=== PATIENT | male | born 1950 | race Caucasian/White ===

== ENCOUNTER 2024-03-30 10:26 | Outpatient (CLI) | payer OTHER, SELFPAY ==
[2024-03-30 10:52] LABS: Charge for UA Resulting for Rev
[2024-03-30 11:07] LABS: Bilirubin Urine Negative (Negative); Blood Urine Negative (Negative); Glucose Urine UA Negative (Normal); Ketones Urine Trace (Negative); Leukocyte Esterase Urine Negative (Negative); Nitrate Urine Negative (Negative); Protein Urine Trace (Negative); Specific Gravity, Urine 1.027 (1.005-1.030); Urine Appearance Clear (CLEAR); Urine Color Dark Yellow (Yellow); pH Urine 5.5 (5-7)
[2024-03-30 11:12] LABS: Bacteria Urine None Seen /hpf; Hyaline Casts Urine 0.81 /lpf; Squamous Epithelial Cell Urine 0-5 /hpf (0-5); WBC Urine 0-5 /hpf (0-5)
== END 2024-03-30 10:27 | disposition home or self-care (01) ==
LOC: LAB 10:31
PROVIDERS: PCP Family Medicine; Visit Provider Chiropractor
DX: Z01.89 Encounter for other specified special examinations (principal)
CPT/HCPCS: 81003; 81015

== ENCOUNTER → 2024-06-27 09:55 | Outpatient (BNVA) | payer OTHER, SELFPAY | PROVIDERS: PCP Family Medicine; Visit Provider Podiatrist Foot & Ankle Surgery | DX: E11.42 Type 2 diabetes mellitus with diabetic polyneuropathy (principal); M21.611 Bunion of right foot; M21.612 Bunion of left foot; M79.672 Pain in left foot; L60.3 Nail dystrophy; I73.9 Peripheral vascular disease, unspecified; R26.9 Unspecified abnormalities of gait and mobility; L84 Corns and callosities | CPT/HCPCS: 11056; 11721; 99203 ==

== ENCOUNTER → 2025-01-09 09:35 | Outpatient (BNVA) | payer OTHER, SELFPAY | PROVIDERS: PCP Family Medicine; Visit Provider Specialist | DX: M16.11 Unilateral primary osteoarthritis, right hip (principal) | CPT/HCPCS: 73502; 99204 ==

== ENCOUNTER → 2025-02-15 09:58 | Outpatient (BNVA) | payer OTHER, SELFPAY | PROVIDERS: PCP Family Medicine; Visit Provider Family Medicine | DX: Z13.1 Encounter for screening for diabetes mellitus (principal); Z01.818 Encounter for other preprocedural examination | CPT/HCPCS: 80053; 81003; 83036; 85025; 87086; 93005 ==

== ENCOUNTER 2025-02-23 17:38 | Observation (INO) | payer OTHER, MEDICARE, SELFPAY ==
--- OUTSIDE RECORDS SUMMARY | 2024-06-14 08:17 | XMS_ITS | Encounter Summary ---
Author Name [facility] [place] [facility] [place] Address [address] [place] [address] Care Team Providers Care Automobile Appraiser Name Role Phone JAE HEBERT Primary Care Provider Unavailabl e LILA AGUILAR Primary Care Provider Unavailjeanette laboy Insurance Providers: All historical and current Section Date Range: From patient's date of to the date document was created. This section includes the names of all active insurance providers for the patient. Insurance Provider Type of Coverage Plan Name Start of Policy Coverage End of Policy Coverage Group Number Member ID Insurance Provider's Telephone Number Policy Leger's Name Patient's Relationship to Policy Leger MEDICARE (WNR) MEDICARE (M) PART A Aug 31, 2013 PART A [phone] SHABNAM VICKERS HN PATIENT MEDICARE (WNR) MEDICARE (M) PART A Aug 31, 2013 PART A [id number] [phone] VICKERSSHABNAM HN PATIENT MEDICARE (WNR) MEDICARE (M) PART A Aug 31, 2013 PART A [id number] VICKERSSHABNAM CEBALLOS PATIENT Selected Encounter This section includes the information on record at [place] for the Encounter. Date/Time Encounter Type Encounter Description Reason Provider Source Jun 14, 2024 01:17 PM Outpatient Encounter ADMIN PAT ACTIVTIES (MASNONCT) [facility]GEI L[address] IHXochilt Encounter Template Text not used by VA Plan of Treatment: Future Appointments (+ 6 months) and Future Tests (+/- 45 days) The Plan of Treatment section includes future care activities for the patient from all [place] [facility]. This section includes future appointments and future orders which are active, pending or scheduled. Future Appointments This section includes appointments that were scheduled to occur 6 months from the date of the Encounter, up to a maximum of 20 appointments. The data comes from all [place] treatment facilities. Appointment Date/Time Appointment Type Appointme nt Facility Name Jun 27, 2024 10:00 AM AMBULATORY - MEDICINE [facility] Jul 01, 2024 10:45 AM AMBULATORY - MEDICINE [facility] Dec 01, 2024 10:00 AM [facility] MEDICINE [facility] Lab Results: +/- 30 days of the encounter This section includes the Chemistry and Hematology Lab Results on record with [place] for the patient. Radiology Reports and Pathology Reports are provided separately, in subsequent sections. Lab Results This section contains the Chemistry/Hematology Results that were resulted 30 days before or 30 daysafter the date of the Encounter. Date/Time Source Result Type Result - Unit Interpretation Reference Range Specimen Type Comment Jun 07, 2024 09:36 AM [facility] COMPREHENSIVE METABOLIC PANEL PLASMA Specimen Type: PLASMA No comment entered. Ordering Provider: JAE HEBERT Report Released Date/Time: Dec 18, 2023 08:41 AM Reporting Lab: [facility] [address] [address] Performing Lab: [facility] [address] [facility] [address] CREATININE 0.95 mg/dL 0.7-1.3 UREA NITROGEN 18 mg/dL 9-25 GLUCOSE 179 mg/dL H 72-99 SODIUM 140 meq/L 136-145 POTASSIUM 4.5 meq/L 3.5-5 CHLORIDE 104 meq/L 98-107 CARBON DIOXIDE 28 meq/L 22-31 CALCIUM 8.9 mg/dL 8.4-10.4 PROTEIN 7.2 g/dL 6-8.6 ALBUMIN 4.0 g/dL 3.4-5 TOTAL BILIRUBIN 0.5 mg/dL 0.2-1.2 ALKALINE PHOSPHATASE 110 U/L 40-150 AST/SGOT 32 U/L 5-34 ALT/SGPT 33 U/L 8-40 EGFR (CKD-EPI 2020) 83 Jun 07, 2024 09:36 AM [facility] CHOLESTEROL PANEL (PB) PLASMA Specimen Type: P KARYN No comment entered. Ordering Provider: JAE HEBERT Report Released Date/Time: Dec 18, 2023 08:41 AM Reporting Lab: [place] [facility] [address] [place] [address] Performing Lab: [place] [facility] [address] [place] [address] CHOLESTEROL 159 mg/dL 0-200 TRIGLYCERIDE 120 mg/dL 0-150 CALCULATED LDL 94.9 mg/dL HDL(New) 40.1 mg/dL H >40 HDL % OF TOTAL CHOLESTEROL (PB) 25.2 >25 Jun 07, 2024 09:36 AM [facility] CB HGA1C BLOOD Specimen Type: BLOOD No comment entered. Ordering Provider: JAE HEBERT Report Released Date/Time: Dec 18, 2023 08:41 AM Reporting Lab: [place] [facility] [address] [place] [address] Performing Lab: [place] [facility] [address] [place] [address] HGA1C 7.7 H 4.0-6.0 Vital Signs: All taken on the encounter date This section contains inpatient and outpatient Vital Signs collected on the date of the Encounter. Date/Time Temperature Pulse Blood Pressure Respiratory Rate SP02 Pain Height Weight Body Mass Index Source Jun 14, 2024 11:30 AM 98 67 156/69 18 97 203.8 29 [facility] Social History: Smoking Status (Most current) and Tobacco Use (All prior to encounter date) This section includes the most current, and the historical, smoking and tobacco- related health factors from the [place] facility where the Encounter took place. Current Smoking Status This section includes the most current smoking, or tobacco-related health factor, from the [place] facility where the Encounter took place. Date/Time Current Smoking Status Comment Agata piedra Dec 16, 2023 01:00 PM VA-TOBACCO NEVER USED [facility] Encounter Notes: All associated encounter notes This section contains the clinical notes associated to the Encounter. Date/Time Encounter Note(s) Provider Source Jun 14, 2024 01:17 PM LETTERS: LOCAL TITLE: TELE-EYE RESULTS LETTER STANDARD TITLE: LETTERS DATE OF NOTE: JUN 14, 2024@13:17 ENTRY DATE: JUN 14, 2024@13:17:35 AUTHOR: SERGEI LANE EXP COSIGNER: URGENCY: STATUS: COMPLETED JUN 14, 2024 TANIA VICKERS [facility] [place], [place] [address] Dear Tania Vickers: You are receiving this letter in regard to your recent [facility] EYE SCREENING. The purpose of the screening is to detect specific vision-threatening conditions such as diabetic retinopathy (if you are diabetic), macular degeneration, and glaucoma. Early detection of eye disease can be important to reduce the risk of permanent vision loss. Your information and testing was reviewed by a licensed VA eye care provider. The date of review and findings are noted below: Screening Exam Findings 06/14/2024 No diabetic retinopathy apparent No macular degeneration apparent No glaucoma apparent No other time-sensitive findings apparent Recommendations: 06/14/2024 A repeat eye screening in 2 YEARS has been recommended *Please note that incidental findings outside the primary focus of this screening may be noted within the detailed report of the visit. This report can be accessed online through [employer] ([email or web address]) or requested through your VA Medical Records/Release of Information office. If you have been seen by a non-VA eye care provider, please bring your records to your next VA appointment to be scanned into your medical record. If you are a tobacco user, [place] provides tobacco cessation services which can reduce the risk of eye disease as well as risks to your overall health. Please discuss with your VA Primary Care team for more information. Thank you for allowing us to serve you. VA Healthcare Team Digital retinal imaging has been shown to be an effective method of screening for specific eye conditions, but cannot substitute for a comprehensive eye exam. Comprehensive eye exams are recommended every 1-2 years, or more frequently as determined by the presence of risk factors, early signs or symptoms, or known history of eye disease. [address]GEI [address] [facility]
--- OUTSIDE RECORDS SUMMARY | 2025-01-03 09:02 | XMS_ITS | Encounter Summary ---
Author Name [facility] [place] [facility] [place] Address [address] [place] [address] Care Team Providers Care Analyst Business Analysis Name Role Phone JAE HEBERT Primary Care [...] PART A Aug 31, 2013 PART A [id number] SHABNAM VICKERS HN PATIENT MEDICARE (WNR) MEDICARE (M) PART A Aug 31, 2013 PART A [id number] VICKERSSHABNAM HN PATIENT MEDICARE (WNR) MEDICARE (M) PART A Aug 31, 2013 PART A [id number] VICKERSSHABNAM CEBALLOS PATIENT Selected Encounter This section includes the information on record at [place] for the Encounter. Date/Time Encounter Type Encounter Description Reason Pro vider Source January 03, 2025 02:02 PM Outpatient Encounter ADMIN PAT ACTIVTIES (MASNONCT) IHE Encounter Template Text not used by VA Plan of Treatment: Future Appointments (+ 6 months) and Future Tests (+/- 45 days) The Plan of Treatment section includes future care activities for the patient from all [place] [facility]. This section includes future appointments and future orders which are active, pending or scheduled. Future Appointments This section includes appointments that were scheduled to occur 6 months from the date of the Encounter, up to a maximum of 20 appointments. The data comes from all [facility]. Appointment Date/Time Appointment Type Appointme nt Facility Name January 04, 2025 12:30 PM AMBULATORY - MEDICINE [facility] January 04, 2025 12:31 PM [facility]ORY - [place]IC[facility] [place] [facility] January 09, 2025 08:30 AM [facility] - [facility]IC[facility] [place] Feb 07, 2025 10:45 AM [facility] Social History: Smoking Status (Most current) and Tobacco Use (All prior to encounter date) This section includes the most current, and the historical, smoking and tobacco- related health factors from the [place] facility where the Encounter took place. Current Smoking Status This section includes the most current smoking, or tobacco-related health factor, from the [place] facility where the Encounter took place. Date/Time Current Smoking Status Comment Facil ity Dec 21, 2024 01:00 PM VA-TOBACCO NEVER USED CIGARETTES [facility] Tobacco Use History This section includes a history of the smoking, or tobacco-related health factors, that were collected on or before the date of the Encounter. The data comes from the [place] facility where the Encounter took place. Date/Time Smoking Status/Tobacco Use Comment F acility Dec 21, 2024 01:00 PM VA-TOBACCO NEVER USED OTHER TYPE [facility] Dec 16, 2023 01:00 PM VA-TOBACCO NEVER USED [facility] Radiology Reports: +/- 30 days of the encounter Radiology Reports For cases when an order for radiology services may have been completed prior to the date of the Encounter, the report list includes the Radiology Reports that were completed up to 30 days before dateof the Encounter. For cases when an order for radiology services may have been completed after the date of the Encounter, the report list also includes the Radiology Reports that were completed up to30 days after date of the Encounter. The data comes from all [facility]. Date/Time Radiology Report Provider Source Dec 21, 2024 01:23 PM HIP W/PELVIS 2-3 V IEWS RIGHT: TANIA VICKERS [id number] -[id number] M Exm Date: DEC 21, 2024@13:23 Req Phys: JAE HEBERT Loc: PB-HILARIO PACT ECHO PCP (Michael'jamil Tobar Img Loc: PB-XRAY [place] Service: [place] [address] (Case [id number] COMPLETE) HIP W/PELVIS 2-3 VIEWS RIGHT (RAD Detailed) CPT:03263 Reason for Study: locking up no injury increased pain Clinical History: Report Status: Verified Date Reported: DEC 21, 2024 Date Verified: DEC 21, 2024 Office Chair Assembler E-Sig: Report: EXAM: Right hip AP and frog-leg views along with AP pelvis. FINDINGS: There is no acute fracture or dislocation. The joint space of the right hip is narrowed and there is osseous degenerative change involving the right hip. In the superior aspect of the right femoral head there is a small area of decreased density which may be associated with the degenerative change although avascular necrosis cannot be excluded. There is mild degenerative change involving the pelvis and the left hip. There is degenerative disc disease and osseous degenerative change involving the lower lumbar spine. There is vascular calcification. Impression: 1. No evidence of acute osseous injury. 2. Narrowed joint space of the right hip with osseous degenerative change. 3. Small area of decreased density in the superior aspect of the right femoral head which may be associated with the degenerative change although avascular necrosis cannot be excluded. 4. Mild degenerative change involving the pelvis and left hip. 5. Degenerative change involving the lower lumbar spine. 6. Vascular calcification. Primary Interpreting Staff: Xiang Patel M.D., Radiology (Office Chair Assembler, no e-sig) /[facility] Encounter Notes: All associated encounter notes This section contains the clinical notes associated to the Encounter. Date/Time Encounter Note(s) Provider Source January 03, 2025 02:02 PM GENERAL MEDICINE N OTE: LOCAL TITLE: General Note PB STANDARD TITLE: GENERAL MEDICINE NOTE DATE OF NOTE: JANUARY 03, 2025@14:02 ENTRY DATE: JANUARY 03, 2025@14:02:56 AUTHOR: SERGEI LANE EXP COSIGNER: URGENCY: STATUS: COMPLETED Attempted to confirm 01/04/25 Audiology appt, no answer /dain/ SERGEI L[address] Telehealth Clinical Whitewasher Signed: 01/03/2025 14:[address] [facility]
[2025-02-23] VITALS (18 sets, daily range): BP systolic 104–164; BP diastolic 53–78; PULSE 67–80; RESP 14–20; TEMP 36.1–36.7; O2SAT 90–98; BMI 26.5
[2025-02-23] MEDS: acetaminophen 1,000 MG/100 ML PIGGYBACK 400 MG IV ×2 (09:44→18:16)
[2025-02-23] MEDS: gabapentin 300 mg Capsule PO (09:46)
[2025-02-23] MEDS: CELEcoxib 200 mg Capsule 400 MG PO (09:46)
[2025-02-23 09:51] LABS: Glucose Point of Care 181 mg/dL (70-110)
--- NOTE | 2025-02-23 10:00 | P.HPUD_ITS ---
Surgery/Procedure H&P Update DATE OF PROCEDURE: February 23, 2025 DATE H&P PERFORMED: 02/15/25 H&P UPDATE INFORMATION: I have reviewed H&P completed within last 30 days, I have examined patient prior to procedure, No changes to prior documentation, H&P is in [facility] EMR on date indicated and Risks and benefits of the procedure reviewed PLANNED PROCEDURE: Operation Date: 02/23/25 10:45 Proposed Procedures p Total Hip Arthroplasty(Right) - Melanie De La Fuente MD Related Problem List Diagnoses (1) Primary osteoarthritis of right hip:
--- NOTE | 2025-02-23 10:10 | ANES.PREANE2 ---
Pre-Anesthetic Assessment Height/Weight: Height 1.78 m Weight 83.915 kg Temp Pulse Resp BP Pulse Ox O2 Del Method 97.8 F 80 16 164/78 97 Room Air 02/23/25 09:10 02/23/25 09:10 02/23/25 09:10 02/23/25 09:10 02/23/25 09:10 02/23/25 09:11 Operation Date: 02/23/25 10:45 Proposed Procedures p Total Hip Arthroplasty(Right) - Melanie De La Fuente MD Familial anesthetic complications: None Was Beta Lu taken within 24 hours: N/A Was Clonidine taken within 24 hours: N/A Last intake: Intake Last Liquid Date 02/22/25 Last Liquid Time 20:00 Last Solid Date 02/22/25 Last Solid Time 20:00 Social No alcohol and No tobacco Exam alert, oriented x 3, clear to auscultation bilaterally and regular rate & rhythm Airway Mallampati: Class II Dentition: full CV/HEM Hypertension PFO - small Metabolic Diabetes Mellitus and Hyperlipidemia Neuropsych Cerebrovascular Accident (residual L sided weakness) Anesthetic Plan Anesthesia: Regional (specify below) Other: spinal Risk of > 500 ml blood loss (7ml/kg in children): No Medications/Allergies Home Medications ?Medication ?Instructions ?Recorded ?Confirmed ?Last Taken ?Type aspirin 81 mg tablet,delayed 81 mg PO DAILY 02/08/24 02/23/25 02/19/25 History release (Adult Aspirin Regimen) atorvastatin 80 mg tablet 80 mg PO DAILY 02/08/24 02/23/25 02/19/25 History lisinopril 10 mg tablet 10 mg PO DAILY 02/08/24 02/23/25 02/19/25 History metformin 500 mg tablet,extended 1,000 mg PO DAILY 02/08/24 02/23/25 02/19/25 History release 24 hr metoprolol succinate 25 mg 12.5 mg PO DAILY 02/08/24 02/23/25 02/22/25 History tablet,extended release 24 hr Compression stockings bilaterally #6 ea 06/27/24 01/09/25 Unknown Rx Diabetic shoes with CUSTOM insoles #1 ea 06/27/24 01/09/25 Unknown Rx Allergies Allergy/AdvReac Type Severity Reaction Status Date / Time No Known Allergies Allergy Verified 02/23/25 09:07 [facility] Anesthesia Social History Smoking and tobacco/nicotine status: never used tobacco/nicotine
[2025-02-23] MEDS: ceFAZolin 2,000 mg SDV 2000 MG IVP ×2 (10:21→18:15)
--- NOTE | 2025-02-23 11:24 | SUR.OPER ---
pt came to OR visibly soiled and multiple sores noted on legs. Dr De La Fuente and JENNIFER Dugan made aware. Pt lower extremities, abdomen, and back bathed in OR with Chloroxylenol prior to prep for case.
[2025-02-23] MEDS: BUPivacaine 0.5% INJ 30 mL XX (11:35)
[2025-02-23] MEDS: vancomycin 1,000 MG SDV 1000 MG INTRA-ARTI (11:36)
[2025-02-23] MEDS: vancomycin 1,000 MG SDV 1000 MG IV (11:36)
[2025-02-23] MEDS: BUPivacaine liposome 13.3 mg/mL SDV 20 mL 266 MG INFILTRATI (11:37)
[2025-02-23] MEDS: ceFAZolin 1,000 mg SDV 1000 MG IRRIGATION (11:38)
[2025-02-23] MEDS: tranexamic acid 1,000 mg/10mL SDV 1000 MG (11:38)
[2025-02-23 13:00] LABS: MRSA PCR OZH (swab) NOT DETECTED (Negative)
--- NOTE | 2025-02-23 13:17 | XR_ITS ---
WS: [id number] Exam: XR pelvis 1-2V* [id number] Date/Time of Exam: 02/23/2025 1:17 PM Reason For Exam: Right total hip Comparison 01/09/2025. RIGHT total hip arthroplasty is noted. Postoperative changes in the adjacent soft tissues. XR/XR pelvis 1-2V* [id number] IMPRESSION: 1. RIGHT total hip replacement.
--- NOTE | 2025-02-23 13:17 | P.OP_ITS ---
Operative Report Date of procedure: February 23, 2025 Pre-op diagnosis: Primary osteoarthritis right hip Post-op diagnosis: Primary osteoarthritis right hip Post-op findings: Hip was stable at 90 degrees of flexion with 60 degrees of internal rotation and 20 degrees of adduction. It was stable to toe hanging, and it was stable to external rotation. Procedure done: Right total hip arthroplasty Implants: [place] [employer] total hip system: The size 56 mm solid back acetabular shell with an F alpha code and an MDM liner size 46 mm inner diameter by F alpha code. A size 6 [employer]ign[employer] high offset neck angle hip stem, femoral head size 28 mm outer diameter and +4 mm offset inside of an MDM insert size inner diameter 28 mm to match the 46F Specimens removed/disposition: Bone, disposed of Pathology: None sent Surgeon: Melanie De La Fuente MD Interpreter Deaf: Deb Jean-Baptiste, nurse practitioner, who services were required for positioning, completion of the surgical procedure, retraction, surgical closure Anesthesia: General (Per LMA, ASA 3) and Spinal (Supplemented with general per LMA) Estimated blood loss (mL): 210 IV fluids (mL): 1,000 Urine output (mL): 100 Complications: None Findings: Severe degenerative osteoarthritis of the right hip with minimal abduction and extension. The hip was stable at 90 degrees of flexion with 70 degrees of internal rotation and 30 degrees of adduction. It was also stable to toe hanging and it was stable to external rotation. Prior to commencement of the surgical procedure, the patient underwent full bed bath secondary to cleanliness upon presentation. Condition: stable Disposition: PACU (Then to floor for postoperative rehabilitation and pain management) Brief History: This 74-year-old gentleman presented initially with complaints of severe hip pain. He had severe limitations in his activities of daily living. 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 Risks and benefits of surgery were discussed with the patient. Questions were answered. The patient wished to proceed with total hip arthroplasty. Procedure: Patient was brought to the operating theater. He was transferred to the operating room table and subsequently administered a spinal anesthesia supplemented with general anesthetic per LMA, ASA 3. Following administration of adequate anesthesia, the patient was given a full bed bath prior to being placed in position for surgery secondary to the cleanliness and concern for infection. Following this, the patient was placed in full lateral position and held in position with a pegboard. The patient's right lower extremity was then prepped and draped in usual fashion utilizing DuraPrep. It was draped free. Following prepping and draping a surgical pause was performed. At the time of surgical pause, we identified the site and side of surgery. We also identified the patient and preoperative surgical markings. Confirmation was made of equipment availability. Additionally, the patient's preoperative IV antibiotic, Ancef 2 g and TXA 1 g preoperatively was confirmed as being given in a timely fashion and being the appropriate. An additional dose will be given on the floor. Patient also was given 1 g of vancomycin in addition to the Ancef. Following the surgical pause, an incision was made centering over the patient's greater trochanter continuing proximally and distally as necessary to allow access to the hip joint. Dissection continued through skin and soft tissues us ing a scalpel, and hemostasis was obtained using electrocautery. The tensor fascia antonella was identified and incised longitudinally. Sciatic nerve was identified and protected throughout the surgical procedure. A Charnley U retractor was placed after the tensor fascia antonella had been incised longitudinally, and the sciatic nerve had been identified. The hip had significant limitation in range of motion including internal and external rotation as well as abduction and particularly extension of the hip. Retractors were placed, and the piriformis muscle was identified and tagged. Piriformis muscle along with the remaining short external rotators were then incised from the posterior aspect of the hip joint. These were retracted posteriorly. The capsule was entered in a T-type fashion with the edges being tagged. Upon entry through the capsule, significant fluid was encountered. Head was noted to be very deformed. Osteophytes were removed, and appropriate osteotomy was performed of the femoral neck following hip dislocation. We then evaluated the acetabulum. The femur was retracted anteriorly. Soft tissues were retracted, osteophytes were excised, and the acetabulum and surrounding osteophytes were further evaluated. We then began reaming with initial minimal deepening of the acetabulum secondary to findings on preoperative x-ray. Reaming was accomplished sequentially. We reamed to a size 55 to allow for a size 56 acetabular shell. The acetabulum was impacted into position. The dome hole was filled with the appropriate metal plug. Also, we confirmed that the acetabular insert was completely seated prior to addressing the femur. After the acetabulum was in appropriate position, we placed the MDM liner without difficulty. The cup was noted to seat nicely and had good fixation upon impact. Attention was directed to the proximal femur. The proximal femur was lifted out of the wound. A canal finder was passed after the box chisel. The reamer was used to lateralize. We then began broaching. We broached sequentially, and placed a size 7 broach in position for trial reduction. A trial reduction was accomplished with a +0 mm femoral head inside the appropriate MDM insert. This construct was felt to be too loose and with concern for instability, neck length was increased to a +4 mm offset. This gave excellent stability, and with this in place, we had the above stabilities. Therefore, the +4 mm offset femoral head was chosen. There was noted to be a tight adductor, and plans were made to release this. Trial components were removed after the hip was dislocated. The size 6 insignia high offset hip stem was impacted into position without difficulty and onto this was placed a +4 mm offset femoral head with the appropriate MDM liner. The hip was then reduced without difficulty. With this construct, we had stability with 90 degrees of flexion and 60 degrees of internal rotation as well as 30 degrees of adduction. We were also stable to toe hanging and to external rotation. The stem was noted to seat nicely prior to placement of the femoral head. The wound was then copiously irrigated with 20 mL of Betadine and 500 mL of normal saline mixed together. Subsequently, we suctioned this out and irrigated the wound copiously with lactated Ringer's. Exparel was injected into the pericapsular tissues as well. Following reduction of the prosthesis once again, we confirmed the stability of the hip. Leg lengths were also felt to be satisfactory. Being satisfied with the prosthesis, attention was directed to closure. Closure was accomplished with 0 Vicryl in the capsular tissues. Piriformis was reattached with 0 Vicryl as well. Tensor fascia antonella was closed with 0 Vicryl in an interrupted fashion. The subcutaneous tissues were closed with 2-0 STRATAFIX. Vancomycin powder and a Gelfoam thrombin mixture was placed into the wound as well. The skin was closed with a running 3-0 STRATAFIX followed by Dermabond, Prineo, and OpSite. The patient was placed in an abduction pillow. She was returned the Recovery Room in a satisfactory condition and will be discharged to the floor for postoperative rehabilitation and pain management. There were no complications. Related Problem List Diagnoses (1) Primary osteoarthritis of right hip:
--- NOTE | 2025-02-23 14:00 | ANE.PACU2 ---
Inpatient post-anesthesia follow up: Airway intact: Yes Vital signs: Temperature 97.4 F Pulse Rate 68 Respiratory Rate 16 Blood Pressure 120/67 Pulse Oximetry 95 Oxygen Delivery Me thod Nasal Cannula Oxygen Flow Rate 1.5 Fraction of Inspir ed Oxygen Hydration adequate: Yes Nausea and vomiting: No Pain level: 1 Mental status: Baseline
--- OUTSIDE RECORDS SUMMARY | 2025-02-23 14:52 | XMS_ITS | Continuity of Care Document ---
Author Name [facility] Organization [facility] Care Team Providers Care Machine Candle Molder Name Role Phone [facility] Unavailable Unavailable Problems Combined list of problems from Department of Defense and Veterans Affairs facilities. It does not include entries that were removed or entered in error. Problem Status Onset Date Problem Type Date of Resolution Comments Source Atrial septal defect Active Condition Jun 04, 2017 Entered By: KAREN SHARP Comment: May 28, 2017, echo report. No plaquing, redundant fossa ovalis, mild mitral valve regurgitation, small patent foramen ovale, mitral valve is mildly thickened.Jun 04, 2017 Entered By: KAREN SHARP Comment: no atherosclerotic plaquingOct 2016 Entered By: KAREN SHARP Comment: redundant fossa ovalisOct 2016 Entered By: KAREN SHARP Comment: mild mitral valve regurgitationOct 2016 Entered By: KAREN SHARP Comment: small patent foramen ovaleOct 2016 Entered By: KAREN SHARP Comment: mitral valve is mildly thickened [facility] Atrial septal defect Active Condition [place] [facility] Bilateral tinnitus Active Condition [place] [facility] Cerebral infarction Active Condition [facility] Cerebral infarction due to middle cerebral artery occlusion Active Condition [place] [facility] Degenerative joint disease involving multiple joints Active Condition [facility] Diabetes Mellitus Type 2 ([facility] [id number]) Active Condition [place] [facility] Exposure to potentially hazardous substance ([facility] [id number]) Active Condition Dec 17 4 Entered By: JEISON VEGA Comment: Entered automatically through [facility] Problem List documentation program [facility] GER[facility] - Gastro-Esophageal Reflux Disease ([facility] [id number]) Active Condition [place] [facility] Hearing Loss (SCT [id number]) Active Condition [place] [facility] HTN - Hypertension (SCT [id number]) Active Condition [place] [facility] Hyperlipidemia (SCT 49927579) Active Condition [place] [facility] Hypertension ([facility]OMED CT [id number]) Active Condition January 11, 2019 Entered By: ASCENCION OSBORN Comment: Currently managed with Metoprolol because he also had intermittent tachy. [facility] Impaired Fasting Glucose (SCT [id number]) Active Condition [facility] Left achilles tendonitis Active Condition [facility] Left hemiparesis Active [place] [facility] Social and personal history finding Active Condition Dec 21, 2019 Entered By: GEENA MAGANA Comment: Tania Dec 21, 2019 Entered By: GEENA MAGANA Comment: = Devika [facility] Type 2 diabetes mellitus without complication Active Condition [facility] Diagnosis: ICD-10-CM H61.21 Impacted cerumen, right ear Active Diagnosis [facility] Diagnosis: ICD-10-CM Z46.1 Encounter for fitting and adjustment of hearing aid Active [facility] Diagnosis: ICD-10-CM E11.9 Type 2 diabetes mellitus without complications Active Diagnosis [facility] Diagnosis: ICD-10-CM I10 Essential (primary) hypertension Active Diagnosis [facility] Diagnosis: ICD-10-CM Z13.5 Encounter for screening for eye and ear disorders Active Diagnosis [facility] Diagnosis: ICD-10-CM H91.90 Unspecified hearing loss, unspecified ear Active Diagnosis [facility] Diagnosis: ICD-10-CM R93.89 Abnormal findings on dx imaging of oth body structures Active Diagnosis [facility] Diagnosis: ICD-10-CM H90.3 Sensorineural hearing loss, bilateral Active Diagnosis [place] [facility] Diagnosis: ICD-10-CM R53.1 Weakness Active Diagnosis [facility] Diagnosis: ICD-10-CM Y93.E6 Activity, residential relocation Active Diagnosis [facility] Medications Combined list of outpatient medications from Department of Defense and Veterans Affairs facilities.Medications provided include 1) outpatient medications from the last 15 months, and 2) patient-reported medications. Medication Details Route Status Patient Instructions Prescription Expires Prescription Number Last Dispense Date Ordering Provider Order Date Order Qty Source ASPIRIN 81MG TAB,EC TAKE ONE TABLET BY MOUTH EVERY DAY ORAL ACTIVE MAKENNA OSBORN 2018 [facility] ASPIRIN 81MG TAB,EC TAKE ONE TABLET BY MOUTH ONCE A DAY ORAL ACTIVE ANUP, [facility] 2023 [facility] ATORVASTATI N [place] 80MG TAB TAKE ONE TABLET BY MOUTH EVERY EVENING FOR HIGH CHOLESTE ROL ORAL 12/16/2024 [id number] 5 [facility] 2023 90 [facility] FAMOTIDINE 20MG TAB TAKE ONE TABLET BY MOUTH TWICE A DAY FOR GASTROES OPHAGEAL REFLUX DISEASE ORAL 12/16/2024 [id number] 4 [facility] 2023 180 [facility] LISINOPRIL 10MG TAB TAKE ONE TABLET BY MOUTH ONCE A DAY FOR HIGH BLOOD PRESSURE ORAL ACTIVE 12/02/2025 [id number] 5 [facility] 2024 90 [facility] LISINOPRIL 10MG TAB TAKE ONE TABLET BY MOUTH ONCE A DAY FOR HIGH BLOOD PRESSURE ORAL DISCONT INUED 12/16/2024 [id number] 5 [facility] 2023 90 [facility] METFORMIN HCL 1000MG TAB TAKE ONE TABLET BY MOUTH TWICE A DAY WITH MEALS FOR DIABETES TAKE WITH FOOD. AVOID ALCOHOL. DISCONTI NUE BEFORE GETTING XRAY DYE. ORAL ACTIVE 06/15/2025 [id number] 5 [facility] 2023 180 [facility] METFORMIN HCL 500MG 24HR TAB,SA TAKE TWO TABLETS BY MOUTH ONCE A DAY FOR DIABETES TAKE WITH FOOD. AVOID ALCOHOL. DISCONTI NUE BEFORE GETTING XRAY DYE. ORAL DISCONT INUED BY PROVIDE R 12/16/2024 [id number] 4 [facility] 2023 60 [facility] METFORMIN HCL 500MG 24HR TAB,SA TAKE TWO TABLETS BY MOUTH ONCE A DAY FOR DIABETES TAKE WITH FOOD. AVOID ALCOHOL. DISCONTI NUE BEFORE GETTING XRAY DYE. ORAL DISCONT INUED 12/16/2024 [id number] 4 [facility] 2023 180 [facility] METOPROLOL SUCCINATE 25MG TAB,SA TAKE ONE-HALF TABLET BY MOUTH ONCE A DAY FOR HIGH BLOOD PRESSURE SWALLOW WHOLE, DO NOT CRUSH OR CHEW (TABLETS MAY BE CUT IN HALF). ORAL DISCONT INUED (EDIT) 12/16/2024 [id number] 4 JAE HEBERT 2023 45 [facility] METOPROLOL SUCCINATE 50MG TAB,SA TAKE ONE-HALF TABLET BY MOUTH ONCE A DAY FOR HIGH BLOOD PRESSURE SWALLOW WHOLE, DO NOT CRUSH OR CHEW (TABLETS MAY BE CUT IN HALF). ORAL ACTIVE 06/15/2025 [id number] 5 JAE HEBERT 2023 45 [facility] Immunizations Combined list of available immunizations from the Department of Defense and Veterans Affairs facilities. Immunization Series Date Given Administered By Site Reaction Lot Number CVX Code Drug Watch And Clock Repairer Status Comments Source INFLUENZA, INJECTABLE, QUADRIVALENT, PRESERVATIVE FREE 2018 NONE 150 complet ed [id number] EXP: 02/28/20 [facility] INFLUENZA, INJECTABLE, QUADRIVALENT, PRESERVATIVE FREE 2016 150 complet ed [facility] INFLUENZA, SPLIT VIRUS, PERSERVATIVE FREE (HISTORICAL) 2015 88 complet ed [facility] PNEUMOCOCCAL CONJUGATE PCV 13 2015 133 complet ed [facility] PNEUMOCOCCAL POLYSACCHARID E PPV23 2015 33 complet ed [facility] INFLUENZA, SPLIT VIRUS, PERSERVATIVE FREE (HISTORICAL) 2015 88 complet ed [facility] TDAP 2015 ROWENA MARTÍNEZ 115 complet ed [facility] ZOSTER (Shingles) (HISTORICAL) 2013 SHADI ANTUNEZ L complet ed [facility] ZOSTER LIVE 2013 121 complet ed HISTORICA L INFORMATI ON - FROM OTHER [facility], [facility] Results Combined list of recent chemistry, hematology and other laboratory results from Department of Defense and Veterans Affairs, ranging from 15 months to all on record, depending upon the facility. Order Name Results Value Reference Range Date Interpretation Specimen Comments Source URINE ALBUMIN PROFILE- (PB) ALBUMIN [MASS/VOLUME] IN URINE 103.15 mg/L 0 - 30 12/01 H Specimen Type: URINE No comment entered. Ordering Provider: JAE HEBERT Report Released Date/Time : Dec 01, 2024 10:03 AM Reporting Lab: [place] [facility] [address] [place] [address] Performin g Lab: [place] [facility] [address] [place] [address] [facility] URINE ALBUMIN PROFILE-ih (PB) ALBUMIN/CREAT ININE [MASS RATIO] IN URINE 80.96 ug/mg 12/01 Specimen Type: URINE No comment entered. Ordering Provider: JAE HEBERT Report Released Date/Time : Dec 01, 2024 10:03 AM Reporting Lab: [place] [facility] [address] [place] [address] Performin g Lab: [place] [facility] [address] [place] [address] [facility] URINE ALBUMIN PROFILE-ih (PB) CREATININE [MASS/VOLUME] IN URINE 127.41 mg/dL 12/01 Specimen Type: URINE No comment entered. Ordering Provider: JAE HEBERT Report Released Date/Time : Dec 01, 2024 10:03 AM Reporting Lab: [place] [facility] [address] [place] [address] Performin g Lab: [place] [facility] [address] [place] [address] [facility] COMPREHENSI VE METABOLIC PANEL CREATININE [MASS/VOLUME] IN SERUM OR PLASMA 0.89 mg/dL 0.7 - 1.3 12/01 Specimen Type: PLASMA No comment entered. Ordering Provider: JAE HEBERT Report Released Date/Time : Dec 01, 2024 10:03 AM Reporting Lab: [place] [facility] [address] [place] [address] Performin g Lab: [place] [facility] [address] [place] [address] [facility] COMPREHENSI VE METABOLIC PANEL UREA NITROGEN [MASS/VOLUME] IN SERUM OR PLASMA 17 mg/dL 9 - 25 12/01 Specimen Type: PLASMA No comment entered. Ordering Provider: JAE HEBERT Report Released Date/Time : Dec 01, 2024 10:03 AM Reporting Lab: [place] [facility] [address] [place] [address] Performin g Lab: [place] [facility] [address] [place] [address] [facility] COMPREHENSI VE METABOLIC PANEL GLUCOSE [MASS/VOLUME] IN SERUM OR PLASMA 155 mg/dL 72 - 99 12/01 H Specimen Type: PLASMA No comment entered. Ordering Provider: JAE HEBERT Report Released Date/Time : Dec 01, 2024 10:03 AM Reporting Lab: [place] [facility] [address] [place] [address] Performin g Lab: [place] [facility] [address] [place] [address] [facility] COMPREHENSI VE METABOLIC PANEL SODIUM [MOLES/VOLUME ] IN SERUM OR PLASMA 139 meq/L 136 - 145 12/01 Specimen Type: PLASMA No comment entered. Ordering Provider: JAE HEBERT Report Released Date/Time : Dec 01, 2024 10:03 AM Reporting Lab: [place] [facility] [address] [place] [address] Performin g Lab: [place] [facility] [address] [place] [address] [facility] COMPREHENSI VE METABOLIC PANEL POTASSIUM [MOLES/VOLUME ] IN SERUM OR PLASMA 4.0 meq/L 3.5 - 5 12/01 Specimen Type: PLASMA No comment entered. Ordering Provider: JAE HEBERT Report Released Date/Time : Dec 01, 2024 10:03 AM Reporting Lab: [place] [facility] [address] [place] [address] Performin g Lab: [place] [facility] [address] [place] [address] [facility] COMPREHENSI VE METABOLIC PANEL CHLORIDE [MOLES/VOLUME ] IN SERUM OR PLASMA 102 meq/L 98 - 107 12/01 Specimen Type: PLASMA No comment entered. Ordering Provider: JAE HEBERT Report Released Date/Time : Dec 01, 2024 10:03 AM Reporting Lab: [place] [facility] [address] [place] [address] Performin g Lab: [place] [facility] [address] [place] [address] [facility] COMPREHENSI VE METABOLIC PANEL CARBON DIOXIDE, TOTAL [MOLES/VOLUME ] IN SERUM OR PLASMA 25 meq/L 22 - 31 12/01 Specimen Type: PLASMA No comment entered. Ordering Provider: JAE HEBERT Report Released Date/Time : Dec 01, 2024 10:03 AM Reporting Lab: [place] [facility] [address] [place] [address] Performin g Lab: [place] [facility] [address] [place] [address] [facility] COMPREHENSI VE METABOLIC PANEL CALCIUM [MASS/VOLUME] IN SERUM OR PLASMA 9.4 mg/dL 8.4 - 10.4 12/01 Specimen Type: PLASMA No comment entered. Ordering Provider: JAE HEBERT Report Released Date/Time : Dec 01, 2024 10:03 AM Reporting Lab: [place] [facility] [address] [place] [address] Performin g Lab: [place] [facility] [address] [place] [address] [facility] COMPREHENSI VE METABOLIC PANEL PROTEIN [MASS/VOLUME] IN SERUM OR PLASMA 7.3 g/dL 6 - 8.6 12/01 Specimen Type: PLASMA No comment entered. Ordering Provider: JAE HEBERT Report Released Date/Time : Dec 01, 2024 10:03 AM Reporting Lab: [place] [facility] [address] [place] [address] Performin g Lab: [place] [facility] [address] [place] [address] [facility] COMPREHENSI VE METABOLIC PANEL ALBUMIN [MASS/VOLUME] IN SERUM OR PLASMA 4.2 g/dL 3.4 - 5 12/01 Specimen Type: PLASMA No comment entered. Ordering Provider: JAE HEBERT Report Released Date/Time : Dec 01, 2024 10:03 AM Reporting Lab: [place] [facility] [address] [place] [address] Performin g Lab: [place] [facility] [address] [place] [address] [facility] COMPREHENSI VE METABOLIC PANEL BILIRUBIN.TOT AL [MASS/VOLUME] IN SERUM OR PLASMA 0.6 mg/dL 0.2 - 1.2 12/01 Specimen Type: PLASMA No comment entered. Ordering Provider: JAE HEBERT Report Released Date/Time : Dec 01, 2024 10:03 AM Reporting Lab: [place] [facility] [address] [place] [address] Performin g Lab: [place] [facility] [address] [place] [address] [facility] COMPREHENSI VE METABOLIC PANEL ALKALINE PHOSPHATASE [ENZYMATIC ACTIVITY/VOLU ME] IN SERUM OR PLASMA 101 U/L 40 - 150 12/01 Specimen Type: PLASMA No comment entered. Ordering Provider: JAE HEBERT Report Released Date/Time : Dec 01, 2024 10:03 AM Reporting Lab: [place] [facility] [address] [place] [address] Performin g Lab: [place] [facility] [address] [place] [address] 8 [facility] COMPREHENSI VE METABOLIC PANEL ASPARTATE AMINOTRANSFER ASE [ENZYMATIC ACTIVITY/VOLU ME] IN SERUM OR PLASMA 35 U/L 5 - 34 12/01 H Specimen Type: PLASMA No comment entered. Ordering Provider: JAE HEBERT Report Released Date/Time : Dec 01, 2024 10:03 AM Reporting Lab: [place] [facility] [address] [place] [address] Performin g Lab: [place] [facility] [address] [place] [address] 8 [facility] COMPREHENSI VE METABOLIC PANEL ALANINE AMINOTRANSFER ASE [ENZYMATIC ACTIVITY/VOLU ME] IN SERUM OR PLASMA 34 U/L 8 - 40 12/01 Specimen Type: PLASMA No comment entered. Ordering Provider: JAE HEBERT Report Released Date/Time : Dec 01, 2024 10:03 AM Reporting Lab: [place] [facility] [address] [place] [address] Performin g Lab: [place] [facility] [address] [place] [address] [facility] COMPREHENSI VE METABOLIC PANEL GLOMERULAR FILTRATION RATE/1.73 SQ M.PREDICTED [VOLUME RATE/AREA] IN SERUM, PLASMA OR BLOOD BY CREATININE-BA SED FORMULA (CKD-EPI 2020) 89 12/01 Specimen Type: PLASMA No comment entered. Ordering Provider: JAE HEBERT Report Released Date/Time : Dec 01, 2024 10:03 AM Reporting Lab: [place] [facility] [address] [place] [address] Performin g Lab: [place] [facility] [address] [place] [address] 8 [facility] CHOLESTEROL PANEL (PB) CHOLESTEROL [MASS/VOLUME] IN SERUM OR PLASMA 155 mg/dL 0 - 200 12/01 Specimen Type: PLASMA No comment entered. Ordering Provider: JAE HEBERT Report Released Date/Time : Dec 01, 2024 10:03 AM Reporting Lab: [place] [facility] [address] [place] [address] Performin g Lab: [place] [facility] [address] [place] [address] [facility] CHOLESTEROL PANEL (PB) TRIGLYCERIDE [MASS/VOLUME] IN SERUM OR PLASMA 99 mg/dL 0 - 150 12/01 Specimen Type: PLASMA No comment entered. Ordering Provider: JAE HEBERT Report Released Date/Time : Dec 01, 2024 10:03 AM Reporting Lab: [place] [facility] [address] [place] [address] Performin g Lab: [place] [facility] [address] [place] [address] [facility] CHOLESTEROL PANEL (PB) CHOLESTEROL IN LDL [MASS/VOLUME] IN SERUM OR PLASMA BY CALCULATION 88.7 mg/dL 12/01 Specimen Type: PLASMA No comment entered. Ordering Provider: JAE HEBERT Report Released Date/Time : Dec 01, 2024 10:03 AM Reporting Lab: [place] [facility] [address] [place] [address] Performin g Lab: [place] [facility] [address] [place] [address] [facility] CHOLESTEROL PANEL (PB) CHOLESTEROL IN HDL [MASS/VOLUME] IN SERUM OR PLASMA 46.5 mg/dL 40 12/01 H Specimen Type: PLASMA No comment entered. Ordering Provider: JAE HEBERT Report Released Date/Time : Dec 01, 2024 10:03 AM Reporting Lab: [place] [facility] [address] [place] [address] Performin g Lab: [place] [facility] [address] [place] [address] [facility] CHOLESTEROL PANEL (PB) CHOLESTEROL IN HDL/CHOLESTER OL.TOTAL [MASS RATIO] IN SERUM OR PLASMA 30.0 25 12/01 Specimen Type: PLASMA No comment entered. Ordering Provider: JAE HEBERT Report Released Date/Time : Dec 01, 2024 10:03 AM Reporting Lab: [place] [facility] [address] [place] [address] Performin g Lab: [place] [facility] [address] [place] [address] [facility] HGA1C HEMOGLOBIN A1C/HEMOGLOBI N.TOTAL IN BLOOD 6.8 4.0 - 6.0 12/01 H Specimen Type: BLOOD No comment entered. Ordering Provider: JAE HEBERT Report Released Date/Time : Dec 01, 2024 10:03 AM Reporting Lab: [place] [facility] [address] [place] [address] Performin g Lab: [place] [facility] [address] [place] [address] [facility] COMPREHENSI VE METABOLIC PANEL CREATININE [MASS/VOLUME] IN SERUM OR PLASMA 0.95 mg/dL 0.7 - 1.3 06/07 Specimen Type: PLASMA No comment entered. Ordering Provider: JAE HEBERT Report Released Date/Time : Dec 18, 2023 08:41 AM Reporting Lab: [place] [facility] [address] [place] [address] Performin g Lab: [place] [facility] [address] [place] [address] [facility] COMPREHENSI VE METABOLIC PANEL UREA NITROGEN [MASS/VOLUME] IN SERUM OR PLASMA 18 mg/dL 9 - 25 06/07 Specimen Type: PLASMA No comment entered. Ordering Provider: JAE HEBERT Report Released Date/Time : Dec 18, 2023 08:41 AM Reporting Lab: [place] [facility] [address] [place] [address] Performin g Lab: [place] [facility] [address] [place] [address] [facility] COMPREHENSI VE METABOLIC PANEL GLUCOSE [MASS/VOLUME] IN SERUM OR PLASMA 179 mg/dL 72 - 99 06/07 H Specimen Type: PLASMA No comment entered. Ordering Provider: JAE HEBERT Report Released Date/Time : Dec 18, 2023 08:41 AM Reporting Lab: [place] [facility] [address] [place] [address] Performin g Lab: [place] [facility] [address] [place] [address] [facility] COMPREHENSI VE METABOLIC PANEL SODIUM [MOLES/VOLUME ] IN SERUM OR PLASMA 140 meq/L 136 - 145 06/07 Specimen Type: PLASMA No comment entered. Ordering Provider: JAE HEBERT Report Released Date/Time : Dec 18, 2023 08:41 AM Reporting Lab: [place] [facility] [address] [place] [address] Performin g Lab: [place] [facility] [address] [place] [address] [facility] COMPREHENSI VE METABOLIC PANEL POTASSIUM [MOLES/VOLUME ] IN SERUM OR PLASMA 4.5 meq/L 3.5 - 5 06/07 Specimen Type: PLASMA No comment entered. Ordering Provider: JAE HEBERT Report Released Date/Time : Dec 18, 2023 08:41 AM Reporting Lab: [place] [facility] [address] [place] [address] Performin g Lab: [place] [facility] [address] [place] [address] [facility] COMPREHENSI VE METABOLIC PANEL CHLORIDE [MOLES/VOLUME ] IN SERUM OR PLASMA 104 meq/L 98 - 107 06/07 Specimen Type: PLASMA No comment entered. Ordering Provider: JAE HEBERT Report Released Date/Time : Dec 18, 2023 08:41 AM Reporting Lab: [place] [facility] [address] [place] [address] Performin g Lab: [place] [facility] [address] [place] [address] [facility] COMPREHENSI VE METABOLIC PANEL CARBON DIOXIDE, TOTAL [MOLES/VOLUME ] IN SERUM OR PLASMA 28 meq/L 22 - 31 06/07 Specimen Type: PLASMA No comment entered. Ordering Provider: JAE HEBERT Report Released Date/Time : Dec 18, 2023 08:41 AM Reporting Lab: [place] [facility] [address] [place] [address] Performin g Lab: [place] [facility] [address] [place] [address] [facility] COMPREHENSI VE METABOLIC PANEL CALCIUM [MASS/VOLUME] IN SERUM OR PLASMA 8.9 mg/dL 8.4 - 10.4 06/07 Specimen Type: PLASMA No comment entered. Ordering Provider: JAE HEBERT Report Released Date/Time : Dec 18, 2023 08:41 AM Reporting Lab: [place] [facility] [address] [place] [address] 8 Performin g Lab: [place] [facility] [address] [place] [address] 8 [facility] COMPREHENSI VE METABOLIC PANEL PROTEIN [MASS/VOLUME] IN SERUM OR PLASMA 7.2 g/dL 6 - 8.6 06/07 Specimen Type: PLASMA No comment entered. Ordering Provider: JAE HEBERT Report Released Date/Time : Dec 18, 2023 08:41 AM Reporting Lab: [place] [facility] [address] [place] [address] 8 Performin g Lab: [place] [facility] [address] [place] [address] 8 [facility] COMPREHENSI VE METABOLIC PANEL ALBUMIN [MASS/VOLUME] IN SERUM OR PLASMA 4.0 g/dL 3.4 - 5 06/07 Specimen Type: PLASMA No comment entered. Ordering Provider: JAE HEBERT Report Released Date/Time : Dec 18, 2023 08:41 AM Reporting Lab: [place] [facility] [address] [place] [address] Performin g Lab: [place] [facility] [address] [place] [address] 8 [facility] COMPREHENSI VE METABOLIC PANEL BILIRUBIN.TOT AL [MASS/VOLUME] IN SERUM OR PLASMA 0.5 mg/dL 0.2 - 1.2 06/07 Specimen Type: PLASMA No comment entered. Ordering Provider: JAE HEBERT Report Released Date/Time : Dec 18, 2023 08:41 AM Reporting Lab: [place] [facility] [address] [place] [address] 8 Performin g Lab: [place] [facility] [address] [place] [address] 8 [facility] COMPREHENSI VE METABOLIC PANEL ALKALINE PHOSPHATASE [ENZYMATIC ACTIVITY/VOLU ME] IN SERUM OR PLASMA 110 U/L 40 - 150 06/07 Specimen Type: PLASMA No comment entered. Ordering Provider: JAE HEBERT Report Released Date/Time : Dec 18, 2023 08:41 AM Reporting Lab: [place] [facility] [address] [place] [address] 8 Performin g Lab: [place] [facility] [address] [place] [address] 8 [facility] COMPREHENSI VE METABOLIC PANEL ASPARTATE AMINOTRANSFER ASE [ENZYMATIC ACTIVITY/VOLU ME] IN SERUM OR PLASMA 32 U/L 5 - 34 06/07 Specimen Type: PLASMA No comment entered. Ordering Provider: JAE HEBERT Report Released Date/Time : Dec 18, 2023 08:41 AM Reporting Lab: [place] [facility] [address] [place] [address] 8 Performin g Lab: [place] [facility] [address] [place] [address] 8 [facility] COMPREHENSI VE METABOLIC PANEL ALANINE AMINOTRANSFER ASE [ENZYMATIC ACTIVITY/VOLU ME] IN SERUM OR PLASMA 33 U/L 8 - 40 06/07 Specimen Type: PLASMA No comment entered. Ordering Provider: JAE HEBERT Report Released Date/Time : Dec 18, 2023 08:41 AM Reporting Lab: [place] [facility] [address] [place] [address] 8 Performin g Lab: [place] [facility] [address] [place] [address] 8 [facility] COMPREHENSI VE METABOLIC PANEL GLOMERULAR FILTRATION RATE/1.73 SQ M.PREDICTED [VOLUME RATE/AREA] IN SERUM, PLASMA OR BLOOD BY CREATININE-BA SED FORMULA (CKD-EPI 2020) 83 06/07 Specimen Type: PLASMA No comment entered. Ordering Provider: JAE HEBERT Report Released Date/Time : Dec 18, 2023 08:41 AM Reporting Lab: [place] [facility] [address] [place] [address] 8 Performin g Lab: [place] [facility] [address] [place] [address] 8 [facility] CHOLESTEROL PANEL (PB) CHOLESTEROL [MASS/VOLUME] IN SERUM OR PLASMA 159 mg/dL 0 - 200 06/07 Specimen Type: PLASMA No comment entered. Ordering Provider: JAE HEBERT Report Released Date/Time : Dec 18, 2023 08:41 AM Reporting Lab: [place] [facility] [address] [place] [address] 8 Performin g Lab: [place] [facility] [address] [place] [address] 8 [facility] CHOLESTEROL PANEL (PB) TRIGLYCERIDE [MASS/VOLUME] IN SERUM OR PLASMA 120 mg/dL 0 - 150 06/07 Specimen Type: PLASMA No comment entered. Ordering Provider: JAE HEBERT Report Released Date/Time : Dec 18, 2023 08:41 AM Reporting Lab: [place] [facility] [address] [place] [address] 8 Performin g Lab: [place] [facility] [address] [place] [address] 8 [facility] CHOLESTEROL PANEL (PB) CHOLESTEROL IN LDL [MASS/VOLUME] IN SERUM OR PLASMA BY CALCULATION 94.9 mg/dL 06/07 Specimen Type: PLASMA No comment entered. Ordering Provider: JAE HEBERT Report Released Date/Time : Dec 18, 2023 08:41 AM Reporting Lab: [place] [facility] [address] [place] [address] 8 Performin g Lab: [place] [facility] [address] [place] [address] 8 [facility] CHOLESTEROL PANEL (PB) CHOLESTEROL IN HDL [MASS/VOLUME] IN SERUM OR PLASMA 40.1 mg/dL 40 06/07 H Specimen Type: PLASMA No comment entered. Ordering Provider: JAE HEBERT Report Released Date/Time : Dec 18, 2023 08:41 AM Reporting Lab: [place] [facility] [address] [place] [address] 8 Performin g Lab: [place] [facility] [address] [place] [address] 8 [facility] CHOLESTEROL PANEL (PB) CHOLESTEROL IN HDL/CHOLESTER OL.TOTAL [MASS RATIO] IN SERUM OR PLASMA 25.2 25 06/07 Specimen Type: PLASMA No comment entered. Ordering Provider: JAE HEBERT Report Released Date/Time : Dec 18, 2023 08:41 AM Reporting Lab: [place] [facility] [address] [place] [address] 8 Performin g Lab: [place] [facility] [address] [place] [address] 8 [facility] HGA1C HEMOGLOBIN A1C/HEMOGLOBI N.TOTAL IN BLOOD 7.7 4.0 - 6.0 06/07 H Specimen Type: BLOOD No comment entered. Ordering Provider: JAE HEBERT Report Released Date/Time : Dec 18, 2023 08:41 AM Reporting Lab: [place] [facility] [address] [place] [address] 8 Performin g Lab: [place] [facility] [address] [place] [address] 8 [facility] COMPREHENSI VE METABOLIC PANEL CREATININE [MASS/VOLUME] IN SERUM OR PLASMA 1.00 mg/dL 0.7 - 1.3 03/14 Specimen Type: PLASMA No comment entered. Ordering Provider: JAE HEBERT Report Released Date/Time : Dec 18, 2023 08:41 AM Reporting Lab: [place] [facility] [address] [place] [address] 8 Performin g Lab: [place] [facility] [address] [place] [address] 8 [facility] COMPREHENSI VE METABOLIC PANEL UREA NITROGEN [MASS/VOLUME] IN SERUM OR PLASMA 14 mg/dL 9 - 25 03/14 Specimen Type: PLASMA No comment entered. Ordering Provider: JAE HEBERT Report Released Date/Time : Dec 18, 2023 08:41 AM Reporting Lab: [place] [facility] [address] [place] [address] 8 Performin g Lab: [place] [facility] [address] [place] [address] 8 [facility] COMPREHENSI VE METABOLIC PANEL GLUCOSE [MASS/VOLUME] IN SERUM OR PLASMA 159 mg/dL 72 - 99 03/14 H Specimen Type: PLASMA No comment entered. Ordering Provider: JAE HEBERT Report Released Date/Time : Dec 18, 2023 08:41 AM Reporting Lab: [place] [facility] [address] [place] [address] 8 Performin g Lab: [place] [facility] [address] [place] [address] 8 [facility] COMPREHENSI VE METABOLIC PANEL SODIUM [MOLES/VOLUME ] IN SERUM OR PLASMA 137 meq/L 136 - 145 03/14 Specimen Type: PLASMA No comment entered. Ordering Provider: JAE HEBERT Report Released Date/Time : Dec 18, 2023 08:41 AM Reporting Lab: [place] [facility] [address] [place] [address] 8 Performin g Lab: [place] [facility] [address] [place] [address] 8 [facility] COMPREHENSI VE METABOLIC PANEL POTASSIUM [MOLES/VOLUME ] IN SERUM OR PLASMA 4.2 meq/L 3.5 - 5 03/14 Specimen Type: PLASMA No comment entered. Ordering Provider: JAE HEBERT Report Released Date/Time : Dec 18, 2023 08:41 AM Reporting Lab: [place] [facility] [address] [place] [address] 8 Performin g Lab: [place] [facility] [address] [place] [address] 8 [facility] COMPREHENSI VE METABOLIC PANEL CHLORIDE [MOLES/VOLUME ] IN SERUM OR PLASMA 103 meq/L 98 - 107 03/14 Specimen Type: PLASMA No comment entered. Ordering Provider: JAE HEBERT Report Released Date/Time : Dec 18, 2023 08:41 AM Reporting Lab: [place] [facility] [address] [place] [address] 8 Performin g Lab: [place] [facility] [address] [place] [address] 8 [facility] COMPREHENSI VE METABOLIC PANEL CARBON DIOXIDE, TOTAL [MOLES/VOLUME ] IN SERUM OR PLASMA 26 meq/L 22 - 31 03/14 Specimen Type: PLASMA No comment entered. Ordering Provider: JAE HEBERT Report Released Date/Time : Dec 18, 2023 08:41 AM Reporting Lab: [place] [facility] [address] [place] [address] 8 Performin g Lab: [place] [facility] [address] [place] [address] 8 [facility] [place] [facility] COMPREHENSI VE METABOLIC PANEL CALCIUM [MASS/VOLUME] IN SERUM OR PLASMA 9.2 mg/dL 8.4 - 10.4 03/14 Specimen Type: PLASMA No comment entered. Ordering Provider: JAE HEBERT Report Released Date/Time : Dec 18, 2023 08:41 AM Reporting Lab: [place] [facility] [address] [place] [address] 8 Performin g Lab: [place] [facility] [address] [place] [address] 8 [facility] COMPREHENSI VE METABOLIC PANEL PROTEIN [MASS/VOLUME] IN SERUM OR PLASMA 7.2 g/dL 6 - 8.6 03/14 Specimen Type: PLASMA No comment entered. Ordering Provider: JAE HEBERT Report Released Date/Time : Dec 18, 2023 08:41 AM Reporting Lab: [place] [facility] [address] [place] [address] 8 Performin g Lab: [place] [facility] [address] [place] [address] 8 [facility] COMPREHENSI VE METABOLIC PANEL ALBUMIN [MASS/VOLUME] IN SERUM OR PLASMA 4.0 g/dL 3.4 - 5 03/14 Specimen Type: PLASMA No comment entered. Ordering Provider: JAE HEBERT Report Released Date/Time : Dec 18, 2023 08:41 AM Reporting Lab: [place] [facility] [address] [place] [address] 8 Performin g Lab: [place] [facility] [address] [place] [address] 8 [facility] COMPREHENSI VE METABOLIC PANEL BILIRUBIN.TOT AL [MASS/VOLUME] IN SERUM OR PLASMA 0.7 mg/dL 0.2 - 1.2 03/14 Specimen Type: PLASMA No comment entered. Ordering Provider: JAE HEBERT Report Released Date/Time : Dec 18, 2023 08:41 AM Reporting Lab: [place] [facility] [address] [place] [address] 8 Performin g Lab: [place] [facility] [address] [place] [address] 8 [facility] COMPREHENSI VE METABOLIC PANEL ALKALINE PHOSPHATASE [ENZYMATIC ACTIVITY/VOLU ME] IN SERUM OR PLASMA 115 U/L 40 - 150 03/14 Specimen Type: PLASMA No comment entered. Ordering Provider: JAE HEBERT Report Released Date/Time : Dec 18, 2023 08:41 AM Reporting Lab: [place] [facility] [address] [place] [address] 8 Performin g Lab: [place] [facility] [address] [place] [address] 8 [facility] COMPREHENSI VE METABOLIC PANEL ASPARTATE AMINOTRANSFER ASE [ENZYMATIC ACTIVITY/VOLU ME] IN SERUM OR PLASMA 33 U/L 5 - 34 03/14 Specimen Type: PLASMA No comment entered. Ordering Provider: JAE HEBERT Report Released Date/Time : Dec 18, 2023 08:41 AM Reporting Lab: [place] [facility] [address] [place] [address] 8 Performin g Lab: [place] [facility] [address] [place] [address] 8 [facility] COMPREHENSI VE METABOLIC PANEL ALANINE AMINOTRANSFER ASE [ENZYMATIC ACTIVITY/VOLU ME] IN SERUM OR PLASMA 33 U/L 8 - 40 03/14 Specimen Type: PLASMA No comment entered. Ordering Provider: JAE HEBERT Report Released Date/Time : Dec 18, 2023 08:41 AM Reporting Lab: [place] [facility] [address] [place] [address] 8 Performin g Lab: [place] [facility] [address] [place] [address] 8 [facility] COMPREHENSI VE METABOLIC PANEL GLOMERULAR FILTRATION RATE/1.73 SQ M.PREDICTED [VOLUME RATE/AREA] IN SERUM, PLASMA OR BLOOD BY CREATININE-BA SED FORMULA (CKD-EPI 2020) 78 03/14 Specimen Type: PLASMA No comment entered. Ordering Provider: JAE HEBERT Report Released Date/Time : Dec 18, 2023 08:41 AM Reporting Lab: [place] [facility] [address] [place] [address] 8 Performin g Lab: [place] [facility] [address] [place] [address] 8 [facility] CHOLESTEROL PANEL (PB) CHOLESTEROL [MASS/VOLUME] IN SERUM OR PLASMA 151 mg/dL 0 - 200 03/14 Specimen Type: PLASMA No comment entered. Ordering Provider: JAE HEBERT Report Released Date/Time : Dec 18, 2023 08:41 AM Reporting Lab: [place] [facility] [address] [place] [address] 8 Performin g Lab: [place] [facility] [address] [place] [address] 8 [facility] CHOLESTEROL PANEL (PB) TRIGLYCERIDE [MASS/VOLUME] IN SERUM OR PLASMA 94 mg/dL 0 - 150 03/14 Specimen Type: PLASMA No comment entered. Ordering Provider: JAE HEBERT Report Released Date/Time : Dec 18, 2023 08:41 AM Reporting Lab: [place] [facility] [address] [place] [address] 8 Performin g Lab: [place] [facility] [address] [place] [address] 8 [facility] CHOLESTEROL PANEL (PB) CHOLESTEROL IN LDL [MASS/VOLUME] IN SERUM OR PLASMA BY CALCULATION 91.2 mg/dL 03/14 Specimen Type: PLASMA No comment entered. Ordering Provider: JAE HEBERT Report Released Date/Time : Dec 18, 2023 08:41 AM Reporting Lab: [place] [facility] [address] [place] [address] 8 Performin g Lab: [place] [facility] [address] [place] [address] 8 [facility] CHOLESTEROL PANEL (PB) CHOLESTEROL IN HDL [MASS/VOLUME] IN SERUM OR PLASMA 41.0 mg/dL 40 03/14 H Specimen Type: PLASMA No comment entered. Ordering Provider: JAE HEBERT Report Released Date/Time : Dec 18, 2023 08:41 AM Reporting Lab: [place] [facility] [address] [place] [address] 8 Performin g Lab: [place] [facility] [address] [place] [address] 8 [facility] CHOLESTEROL PANEL (PB) CHOLESTEROL IN HDL/CHOLESTER OL.TOTAL [MASS RATIO] IN SERUM OR PLASMA 27.2 25 03/14 Specimen Type: PLASMA No comment entered. Ordering Provider: JAE HEBERT Report Released Date/Time : Dec 18, 2023 08:41 AM Reporting Lab: [place] [facility] [address] [place] [address] 8 Performin g Lab: [place] [facility] [address] [place] [address] 8 [facility] URINE ALBUMIN PROFILE-ih (PB) ALBUMIN [MASS/VOLUME] IN URINE 44.70 mg/L 0 - 30 12/15 H Specimen Type: URINE No comment entered. Ordering Provider: JAE HEBERT Report Released Date/Time : Dec 16, 2023 02:07 PM Reporting Lab: [place] [facility] [address] [place] [address] 8 Performin g Lab: [place] [facility] [address] [place] [address] 8 [facility] URINE ALBUMIN PROFILE-ih (PB) ALBUMIN/CREAT ININE [MASS RATIO] IN URINE 19.82 ug/mg 12/15 Specimen Type: URINE No comment entered. Ordering Provider: JAE HEBERT Report Released Date/Time : Dec 16, 2023 02:07 PM Reporting Lab: [place] [facility] [address] [place] [address] 8 Performin g Lab: [place] [facility] [address] [place] [address] 8 [facility] URINE ALBUMIN PROFILE-ih (PB) CREATININE [MASS/VOLUME] IN URINE 225.58 mg/dL 12/15 Specimen Type: URINE No comment entered. Ordering Provider: JAE HEBERT Report Released Date/Time : Dec 16, 2023 02:07 PM Reporting Lab: [place] [facility] [address] [place] [address] 8 Performin g Lab: [place] [facility] [address] [place] [address] 8 [facility] Vital Signs Combined list of inpatient and outpatient Vital Signs from Department of Defense and Veterans Affairs, ranging from 12 months to all on record, depending upon the facility. Vital Sign Value Date Comments Source SYSTOLIC BLOOD PRESSURE 132 02/07/2025 12:30:00 [facility] [place] [place] [facility] DIASTOLIC BLOOD PRESSURE 72 02/07/2025 12:30:00 [facility] [place] [place] [facility] TEMPERATURE 98 02/07/2025 12:30:00 [facility] [place] [facility] PULSE 78 02/07/2025 12:30:00 [facility] [place] SYSTOLIC BLOOD PRESSURE 126 12/21/2024 13:12:15 [facility] [place] DIASTOLIC BLOOD PRESSURE 72 12/21/2024 13:12:15 [facility] [place] PULSE OXIMETRY 96 12/21/2024 13:12:15 [facility] WEIGHT 187 12/21/2024 13:12:15 [facility] BMI 27 kg/m2 12/21/2024 13:12:15 [facility] PAIN 0 12/21/2024 13:12:15 [facility] [place] TEMPERATURE 98.4 12/21/2024 13:12:15 [facility] [place] [facility] PULSE 76 12/21/2024 13:12:15 [facility] [place] [facility] RESPIRATION 22 12/21/2024 13:12:15 [facility] [place] [facility] SYSTOLIC BLOOD PRESSURE 156 06/14/2024 11:30:00 [place] [facility] DIASTOLIC BLOOD PRESSURE 69 06/14/2024 11:30:00 [place] [place] [facility] PULSE OXIMETRY 97 06/14/2024 11:30:00 [facility] [place] [facility] WEIGHT 203.8 06/14/2024 11:30:00 [facility] [place] [facility] BMI 29 kg/m2 06/14/2024 11:30:00 [facility] [place] TEMPERATURE 98 06/14/2024 11:30:00 [place] [place] [facility] PULSE 67 06/14/2024 11:30:00 [facility] [place] [facility] RESPIRATION 18 06/14/2024 11:30:00 [facility] [place] [facility] Encounters Combined list of: 1) Encounters from Department of Veterans Affairs facilities going backup to the last 18 months, not all VA inpatient encounters are included; 2) Encounters from the Department of Defense facilities going backup to 280 months. Location Location Details Encounter Type Encounter Number Reason For Visit Attending Provider ADM Date DC Date Status Disposition Source [facility] Outpatient Encounter [id number] 12[facility] [facility] [place] 60 MIN [id number] Diagnos is: ICD-10- CM E11.9 Type 2 diabete s mellitu s without complic ations Kev HEBERT 12/15 [facility] Outpatient Encounter [id number] 12[facility] [facility] [id number] 12/23 [facility] Outpatient Encounter [id number] 12/29 [facility] [place] [facility] Outpatient Encounter [id number] KEVHARDIK 01/03 [place] [facility] TARGETED CASE MANAGEMENT [id number] Diagnos is: ICD-10- CM Y93.E6 Activit y, residen tial Kev Pate 01/06 [facility] Outpatient Encounter [id number] 02/02 [facility] OFF/OP EST DECEMBER X REQ PHY/QHP [id number] Diagnos is: ICD-10- CM R53.1 NIKHIL Keller 02/07 [facility] FEE [id number] Diagnos is: ICD-10- CM H90.3 Sensori neural hearing loss, bilater al ANGÉLICA MACKENZIE 02/09 [facility] [place] [facility] HEARING AID EXAM BOTH EARS [id number] Diagnos is: ICD-10- CM H90.3 Sensori neural hearing loss, bilater al ANGÉLICA MACKENZIE A 02/09 [place] [facility] Outpatient Encounter [id number] 02/15 [facility] TE[facility]HEALTH FACILITY FEE [id number] Diagnos is: ICD-10- CM Z46.1 Encount er for fitting and adjustm ent of hearing aid ANGÉLICA MACKENZIE A 03/14 [facility] CONFORMITY EVALUATION [id number] [id number] Diagnos is: ICD-10- CM Z46.1 Encount er for fitting and adjustm ent of hearing aid ANGÉLICA MACKENZIE 03/14 [place] [facility] Outpatient Encounter [id number] 03/17 [facility] HC PRO PHONE CALL 5-10 MIN [id number] Diagnos is: ICD-10- CM R93.89 Abnorma l finding s on dx imaging of oth body structu res SHABNAM NICHOLSON 03/21 [facility] REMOVE IMPACTED EAR WAX UNI [id number] Diagnos is: ICD-10- CM H91.90 Unspeci fied hearing loss, unspeci fied ear JOHANA HUMPHREY 04/13 [facility] Outpatient Encounter [id number] 04/13 [facility] OFFICE O/P EST MOD 30 MIN [id number] Diagnos is: ICD-10- CM E11.9 Type 2 diabete s mellitu s without complic ations ANUPKev INEZ 06/14 [facility] FUNDUS PHOTOGRAPH Y W/I&R [id number] Diagnos is: ICD-10- CM Z13.5 Encount er for screeni ng for eye and ear disorde rs JACQUELINE LANE Danny 06/14 [facility] Outpatient Encounter [id number] 06/[address] [facility] [facility] Outpatient Encounter [id number] Diagnos is: ICD-10- CM Z13.5 Encount er for screeni ng for eye and ear disorde rs ERIK GARCIA S 06/14 [place] [facility] Outpatient Encounter [id number] 06/14 [facility] Outpatient Encounter [id number] 06/[address] [facility] [place] [facility] Outpatient Encounter [id number] 06/27 [place] [facility] Outpatient Encounter [id number] 06/[address] [facility] CB OFF/OP EST MAY X REQ PHY/QHP [id number] Diagnos is: ICD-10- CM I10 Essenti al (primar y) hyperte nsRad Dan 07/01 [facility] OFFICE O/P EST LOW 20 MIN [id number] Diagnos is: ICD-10- CM E11.9 Type 2 diabete s mellitu s without complic ations Kev HEBERT 12/21 [place] [facility] En[facility] [id number] 12/[address] [facility] Outpatient Encounter [id number] 01/03 [facility] FEE [id number] Diagnos is: ICD-10- CM Z46.1 Encount er for fitting and adjustm ent of hearing aid ANGÉLICA MACKENZIE 01/04 [facility] REPAIR/MOD IFYING [id number] Diagnos is: ICD-10- CM Z46.1 Encount er for fitting and adjustm ent of hearing aid ANGÉLICA MACKENZIE A 01/04 [facility] Outpatient Encounter [id number] 01/06 [facility] Outpatient Encounter [id number] 01/09 [facility] OFF/OP EST DECEMBER X REQ PHY/QHP [id number] Diagnos is: ICD-10- CM H61.21 Impacte d cerumen , right ear CUSTRED,TO RRI J 02/07 [facility] Social History Combined list of available smoking, tobacco, and other social history from Department of Defense and Veterans Affairs facilities. Social History Type Response Date Comment Sourc e Tobacco smoking status NHIS VA-TOBACCO NEVER USED CIGARETTES 12/21/2024 [facility] History of tobacco use VA-TOBACCO NEVER USED OTHER TYPE 12/21/2024 [facility] History of tobacco use VA-TOBACCO NEVER USED 12/16/2023 [facility] History of tobacco use VA-TOBACCO NEVER USED 04/11/2021 [facility] History of tobacco use [place]-TO[place] NEVER USED 07/06/2019 [facility] History of tobacco use LIFETIME NON-TOBACCO USER 01/11/2019 [facility] History of tobacco use LIFETIME NON-TOBACCO USER 01/27/2018 [facility] History of tobacco use LIFETIME NON-TOBACCO USER 01/22/2017 [facility] History of tobacco use LIFETIME NON-TOBACCO USER 11/13/2015 [facility] History of tobacco use LIFETIME NON-TOBACCO USER 05/22/2014 [facility] History of tobacco use LIFETIME NON-TOBACCO USER 11/04/2011 [facility] History of tobacco use LIFETIME NON-TOBACCO USER 05/01/2009 [facility]
[2025-02-23] MEDS: tranexamic acid 1,000 MG/100 ML PREMIX 600 MG IV (18:15)
[2025-02-23] MEDS: sennosides-docusate Tablet 2 TAB PO (18:16)
[2025-02-23] MEDS: chlorhexidine gluconate 0.12% Btl 473 mL 30 ML MUCOUS MEM ×2 (18:16→20:27)
[2025-02-23] MEDS: calcium carbonate 500 mg Chew Tablet 1000 MG PO (18:16)
[2025-02-23] MEDS: iron polysaccharide complex 150 mg Capsule PO (18:17)
[2025-02-23] MEDS: mupirocin oint 22 gm 1 APPLIC NASAL (18:17)
--- OUTSIDE RECORDS SUMMARY | 2025-02-23 19:53 | XMS_ITS | Clinical Summary ---
Author Organization [facility] Address [address] [place] [address] Care Team Providers Care Stove Carriage Operator Name Role Phone Unavailable Primary Care Provider Unavailabl e Medications No known medications Active Problems Problem Noted Date Diagnosed Date Bilateral leg numbness 02/03/2024 Social History Tobacco Use Types Packs/Day Years Used Date Smoking Tobacco: Never Assessed Sex and Gender Information Value Date Recorded Sex Assigned at Not on file Legal Sex Male 8:24 AM CDT Gender Identity Not on file Sexual Orientation Not on file Plan of Treatment Health Maintenance Due Date Last Done Comments Annual Wellness 1948 Td, Tdap Vaccines Adult 1967 Colonoscopy 1993 Pneumococcal Vaccine: 50+ Ye ars (1 of 1 - PCV) 1998 Shingrix (ZOSTER RECOMBINANT ) (1 of 2) 1998 RSV 60+ (1 - 1-dose 75+ series) 2023 Influenza Vaccination ([place] n Ended) 2025 HIB Vaccines Aged Out No longer eligi ble based on patient's age to complete this topic HPV Vaccines Aged Out No longer eligi ble based on patient's age to complete this topic Hepatitis A Vaccines Aged Out No long er eligible based on patient's age to complete this topic Hepatitis B Vaccines Aged Out No long er eligible based on patient's age to complete this topic IPV Vaccines Aged Out No longer eligi ble based on patient's age to complete this topic Meningococcal Vaccines Aged Out No lo nger eligible based on patient's age to complete this topic RSV Mab Nirsevimab (Beyfortu s) <20 months Aged Out No longer eligible b ased on patient's age to complete this topic Rotavirus Vaccines Aged Out No longer eligible based on patient's age to complete this topic Insurance [facility]
[2025-02-23 20:23] LABS: Glucose Point of Care 356 mg/dL (70-110)
[2025-02-23] MEDS: CELEcoxib 200 mg Capsule PO (20:27)
[2025-02-23] MEDS: oxyCODONE 5 mg IR Tab/Cap PO (22:24)
[2025-02-24] VITALS (7 sets, daily range): BP systolic 113–136; BP diastolic 56–67; PULSE 78–80; RESP 16–18; TEMP 36.4–36.8; O2SAT 92–95
[2025-02-24] MEDS: acetaminophen 1,000 MG/100 ML PIGGYBACK 400 MG IV ×2 (01:39→08:52)
[2025-02-24] MEDS: ceFAZolin 2,000 mg SDV 2000 MG IVP ×2 (01:57→08:51)
[2025-02-24 06:00] LABS: Basophils % 0.2 %; Eosinophils % 0.3 %; Hematocrit 28.6 % (37-53); Lymphocytes # 1.6 10^3/uL (0.8-4.8); Lymphocytes % 12.6 %; Mean Corpuscular HGB Conc 32.9 g/dL (30-55); Mean Corpuscular Volume 100.4 fl (82-101); Monocytes # 0.7 10^3/uL (0.2-0.9); Monocytes % 5.6 %; Nucleated Red Blood Cells % 0 %; Platelet Count 197 10^3/cmm (157-399); Red Blood Count 2.85 10^6/uL (3.85-5.65); Red Cell Distribution Width 12.4 % (12.1-15.1)
[2025-02-24] MEDS: oxyCODONE 5 mg IR Tab/Cap PO ×2 (06:12→12:52)
[2025-02-24 06:27] LABS: Anion Gap 13.8 (5-19); Blood Urea Nitrogen 20 mg/dL (8-23); Calcium 8.1 mg/dL (8.5-10.5); Carbon Dioxide 25 mmol/L (22-29); Chloride 105 mmol/L (98-107); Creatinine Clr Calc Pharmacy 63.1043; Glucose 188 mg/dL (65-115); Osmolality Calculated 298 mOsm/kg (285-295); Potassium 3.8 mmol/L (3.5-5.1); Sodium 140 mmol/L (136-145)
[2025-02-24 06:30] LABS: Glucose Point of Care 205 mg/dL (70-110)
[2025-02-24] MEDS: calcium carbonate 500 mg Chew Tablet 1000 MG PO (08:49)
[2025-02-24] MEDS: metformin XR 500 MG Tablet 1000 MG PO (08:49)
[2025-02-24] MEDS: cholecalciferol (vitamin D3) 1,000 unit Tablet 1000 UNIT PO (08:49)
[2025-02-24] MEDS: metoprolol succinate ER (24 HR) 25 mg Tablet 12.5 MG PO (08:50)
[2025-02-24] MEDS: iron polysaccharide complex 150 mg Capsule PO (08:50)
[2025-02-24] MEDS: aspirin 325 mg EC Tablet PO (08:50)
[2025-02-24] MEDS: sennosides-docusate Tablet 2 TAB PO (08:50)
[2025-02-24] MEDS: atorvastatin 40 mg Tablet 80 MG PO (08:50)
[2025-02-24] MEDS: multivitamin therapeutic Tablet 1 TAB PO (08:51)
[2025-02-24] MEDS: CELEcoxib 200 mg Capsule PO (08:51)
[2025-02-24] MEDS: lisinopril 10 mg Tablet PO (08:51)
[2025-02-24] MEDS: chlorhexidine gluconate 0.12% Btl 473 mL 30 ML MUCOUS MEM ×2 (08:51→12:52)
[2025-02-24] MEDS: mupirocin oint 22 gm 1 APPLIC NASAL (08:52)
[2025-02-24 11:39] LABS: Glucose Point of Care 251 mg/dL (70-110)
[2025-02-24] MEDS: VANCOMYCIN ADD-Vantage 1,000 MG in 0.9% NaCl ADD-Vantage 250 ML 250 MG IV (13:30)
--- NOTE | 2025-02-24 14:15 | PM.DCS ---
Discharge Providers Date of Admission: 02/23/25 17:38 Date of Discharge: February 24, 2025 Attending Provider at Admission: Melanie De La Fuente MD Attending Provider at Discharge: Melanie De La Fuente MD Primary Care Provider: Eliana Pierre MD Diagnoses at Discharge Discharge Diagnosis (1) Primary osteoarthritis of right hip: Status: Acute (2) History of total right hip arthroplasty: Status: Acute Permanent problem details: Date of procedure: February 23, 2025 Diagnosis: Primary osteoarthritis right hip Procedure done: Right total hip arthroplasty Implants: [place] Insignia total hip system: The size 56 mm solid back acetabular shell with an F alpha code and an MDM liner size 46 mm inner diameter by F alpha code. A size 6 Insignia high offset neck angle hip stem, femoral head size 28 mm outer diameter and +4 mm offset inside of an MDM insert size inner diameter 28 mm to match the 46F Reason for Visit Reason for Visit: M16.11 Brief History: This 74-year-old gentleman presented initially with complaints of severe right hip pain. He had severe limitations in his activities of daily living. 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 Risks and benefits of surgery were discussed with the patient. Questions were answered. The patient wished to proceed with total hip arthroplasty. Physical Exam Const: COMMON NORMALS: no acute distress, average body habitus, patient oriented x3 and alert GENERAL APPEARANCE: cooperative and comfortable ORIENTATION/CONSCIOUSNESS: Yes awake HENMT: COMMON NORMALS: normocephalic and atraumatic HEAD & SCALP: normocephalic and atraumatic Eye: GENERAL EYE: appearance normal, both eyes and all related structures Chest: COMMONS NORMALS: normal inspection of the chest Resp: COMMON NORMALS: normal respiratory effort EFFORT & INSPECTION: Yes able to speak in complete sentences and Yes symmetric chest movement Extremity: RIGHT LOWER EXTREMITY: Yes hip joint (Dressing is dry and intact) Right hip: Yes inspection (No significant swelling), Yes ROM (Not evaluated) and Yes neurovascular exam (Intact distally with no evidence of DVT) Neuro: COMMON NORMALS: patient oriented x3 SENSORIUM/ORIENTATION: Yes alert Psych: COMMON NORMALS: mental status grossly normal APPEARANCE: Yes grossly normal ATTITUDE: Yes calm and Yes engaged ATTENTION/CONCENTRATION: Yes attention grossly intact Skin: COMMON NORMALS: no rashes or lesions noted GENERAL SKIN EXAM: no rashes or lesions noted Urinary Catheter Management: [place]: Cath Placed During This Visit: yes, but has since been removed by the nurse Reason for Continuing Indwelling Catheter: Perioperative Use in Selected Surgeries Urinary Catheter Date of Insertion: 02/23/25 Urinary Catheter Time of Insertion: 11:00 Date Urinary Catheter Removed: 02/24/25 Time Urinary Catheter Discontinued: 06:20 Discharge Data Studies Completed and Pending Completed Studies During Hospitalization Category Date Time Status XR pelvis 1-2V* [id number] Routine Exams 02/23/25 13:17 Completed Radiology Impressions Pelvis X-Ray 02/23/25 13:17 IMPRESSION: 1. RIGHT total hip replacement. Laboratory Results WBC 12.60 10^3/uL (3.29-11.43) H 02/24/25 05:15 RBC 2.85 10^6/uL (3.85-5.65) L 02/24/25 05:15 Hgb 9.40 g/dL (11.27-16.99) L 02/24/25 05:15 Hct 28.6 % (37-53) L 02/24/25 05:15 MCV 100.4 fl (82-101) 02/24/25 05:15 MCH 33.0 pg (27-33) 02/24/25 05:15 MCHC 32.9 g/dL (30-55) 02/24/25 05:15 RDW 12.4 % (12.1-15.1) 02/24/25 05:15 Plt Count 197 10^3/cmm (157-399) 02/24/25 05:15 MPV 11.0 fL (7.4-10.4) H 02/24/25 05:15 Neut % (Auto) 81.0 % 02/24/25 05:15 Lymph % (Auto) 12.6 % 02/24/25 05:15 [place] % (Auto) 5.6 % 02/24/25 05:15 Eos % (Auto) 0.3 % 02/24/25 05:15 Baso % (Auto) 0.2 % 02/24/25 05:15 Neut # (Auto) 10.20 10^3/uL (1.8-7.7) H 02/24/25 05:15 Lymph # (Auto) 1.6 10^3/uL (0.8-4.8) 02/24/25 05:15 [place] # (Auto) 0.7 10^3/uL (0.2-0.9) 02/24/25 05:15 Eos # (Auto) 0.0 10^3/uL (0.0-0.8) 02/24/25 05:15 Baso # (Auto) 0.0 10^3/uL (0.0-0.1) 02/24/25 05:15 Nucleated RBC % (auto) 0 % 02/24/25 05:15 Nucleated RBCs # 0.0 /100WBC 02/24/25 05:15 Sodium 140 mmol/L (136-145) 02/24/25 05:15 Potassium 3.8 mmol/L (3.5-5.1) 02/24/25 05:15 Chloride 105 mmol/L (98-107) 02/24/25 05:15 Carbon Dioxide 25 mmol/L (22-29) 02/24/25 05:15 Anion Gap 13.8 (5-19) 02/24/25 05:15 BUN 20 mg/dL (8-23) 02/24/25 05:15 Creatinine 1.1 mg/dL (0.7-1.2) 02/24/25 05:15 GFR Calculation Not Reportable 02/24/25 05:15 Glucose 188 mg/dL (65-115) H 02/24/25 05:15 POC Glucose 251 mg/dL (70-110) H 02/24/25 11:34 Calculated Osmolality 298 mOsm/kg (285-295) H 02/24/25 05:15 Calcium 8.1 mg/dL (8.5-10.5) L 02/24/25 05:15 Nasal MRSA (PCR) Not detected (Negative) 02/23/25 11:43 Vitals Last Vital Signs Temp 97.6 F 02/24/25 12:25 Pulse 78 02/24/25 12:25 Resp 16 02/24/25 12:52 BP 116/66 02/24/25 12:25 Pulse Ox 92 02/24/25 12:25 O2 Del Method Room Air 02/24/25 04:29 O2 Flow Rate 1.5 02/23/25 14:40 Discharge Plan Discharge Patient Disposition: Home Health Service Condition: Stable Prescriptions: New celecoxib 200 mg Capsule 200 mg PO 1XD 30 Days Qty: 30 0RF acetaminophen 500 mg Tablet 1,000 mg PO Q8H 15 Days Qty: 90 0RF aspirin 325 mg Tablet,Delayed Release (Dr/Ec) 325 mg PO DAILY 30 Days Qty: 30 0RF oxycodone 5 mg Tablet 5 mg PO Q4H PRN (Reason: Moderate To Severe Pain) 7 Days Qty: 30 0RF Continued atorvastatin 80 mg tablet 80 mg PO DAILY lisinopril 10 mg tablet 10 mg PO DAILY metformin 500 mg tablet extended release 24 hr 1,000 mg PO DAILY metoprolol succinate 25 mg tablet extended release 24 hr 12.5 mg PO DAILY aspirin [Adult Aspirin Regimen] 81 mg tablet,delayed release (DR/EC) 81 mg PO DAILY (DME) Diabetic shoes with CUSTOM insoles See Rx Instructions .Route .MEDSUPPLY Qty: 1 0RF Rx Instructions: As directed by MA and [facility] (DME) Compression stockings bilaterally See Rx Instructions .Route .MEDSUPPLY Qty: 6 0RF Rx Instructions: As directed by MA Discharge Orders: Discharge Order (Routine); Ordered 02/24/25 Ordered By: Melanie De La Fuente Other Ambulatory Orders: DME: Walker (Order) Location: None Selected Ordered By: Melanie De La Fuente Referrals: [facility] [Outside] Melanie De La Fuente MD [Physician, Orthopedics] - 03/08/25 8:30 am Discharge Diet: Advance as tolerated, Usual diet and As Directed Discharge Activity: Limit activity as instructed, Use walker/crutches as instructed and As per PT/OT instructions Patient Instructions: Acetaminophen (By mouth), Aspirin (By mouth), Oxycodone, Rapid Release (By mouth), Celecoxib (By mouth) (isadora Cheung), Acute Wound Care (DC), Total Hip Replacement (DC), Post Anesthesia Care Activity Restrictions/Additional Instructions: Posterior hip precautions. Weight-bear as tolerated. Ambulation, gait training, and strengthening per physical therapy. Home physical therapy to help you. You may shower and get the dressing wet, but remove it if it begins to leak. Do not submerge the hip in water. Discharge Attestations Time Spent in Discharge Care*: greater than 30 min Specific Discharge Activities: educating patient, documenting/other paperwork and evaluating patient/reviewing data Quality Metrics Clinical Quality Measures [ No reported AMI, CVA or VTE this stay] Coding Level of Care Code Acute Code for Chg Fwd Diagnoses Primary osteoarthritis of right hip M16.11 History of total right hip arthroplasty Z96.641
== END 2025-02-24 16:30 | disposition home health service (06) ==
LOC: MEDSURG 19:07
PROVIDERS: Admitting Provider Specialist; PCP Family Medicine; Visit Provider Specialist
PROC: (CPT 27130; principal; 2025-02-23 10:15)
PROC: (CPT 27130; 2025-02-23 10:15)
DX: M16.11 Unilateral primary osteoarthritis, right hip (principal); Z79.82 Long term (current) use of aspirin; Z79.84 Long term (current) use of oral hypoglycemic drugs; I10 Essential (primary) hypertension; E11.9 Type 2 diabetes mellitus without complications; E78.5 Hyperlipidemia, unspecified; Z86.73 Personal history of transient ischemic attack (TIA), and cerebral infarction without residual deficits; I65.29 Occlusion and stenosis of unspecified carotid artery
CPT/HCPCS: 27130; 36415; 36416; 51702; 72170; 80048; 82962; 85025; 97110; 97116; 97161; 97165; A4216; C1776; G0378; J0131; J0666; J0690; J1100; J2250; J2405; J2704; J3010; J3370; J3490; J7050; J9999

== ENCOUNTER → 2025-03-08 08:55 | Outpatient (BNVA) | payer OTHER, SELFPAY | PROVIDERS: PCP Family Medicine; Visit Provider Specialist | DX: M16.11 Unilateral primary osteoarthritis, right hip (principal); Z96.641 Presence of right artificial hip joint | CPT/HCPCS: 73502; 99024 ==

== ENCOUNTER → 2025-06-12 09:44 | Outpatient (BNVA) | payer OTHER, SELFPAY | PROVIDERS: PCP Family Medicine; Visit Provider Specialist | DX: Z47.89 Encounter for other orthopedic aftercare (principal); Z96.641 Presence of right artificial hip joint | CPT/HCPCS: 73502; 99213 ==